=== PATIENT | male | born 1960 | race Caucasian/White ===

== ENCOUNTER 2018-09-14 05:05 | Inpatient (IN) ==
[2018-09-13 13:07] LABS: Basophils # 0.1 10*3/uL (0.0-0.2); Basophils % 1.2 % (0.0-0.8); Eosinophils # 0.2 10*3/uL (0.0-0.87); Eosinophils % 2.7 % (0.00-10.9); Hematocrit 39.2 VOL% (42.0-52.0); Hemoglobin 13.2 GM/DL (14.0-18.0); Immature Granulocytes % 1.3 %; Immature Granulocytes Absolute 0.08 #; Lymphocytes # 1.6 10*3/uL (1.4-4.0); Lymphocytes % 26.4 % (21.2-54.2); Mean Corpuscular HGB Conc 33.7 GM/DL (32-36); Mean Corpuscular Hemoglobin 32 PG (27-34); Mean Corpuscular Volume 93.6 FL (87-102); Monocytes # 0.5 10*3/uL (0.11-0.8); Monocytes % 8.6 % (1.7-12.7); Neutrophils # 3.6 10*3/uL (1.4-7.4); Neutrophils % 59.8 % (38.7-73.9); Platelet Count 306 T/CUMM (130-400); Red Blood Count 4.19 MC/CUMM (3.8-5.5); Red Cell Distribution Width 12.2 % (9.3-17.3)
[2018-09-13 13:10] LABS: Apearance,Urine CLEAR (Clear); Bilirubin,Urine Negative (Negative); Blood, Urine Negative (Negative); Glucose,Urine (UA) Negative (Negative); Ketones,Urine Negative (Negative); Mucus,Urine Occasional /LPF (Occasional); Nitrite,Urine Negative (Negative); Protein,Urine Negative; RBC,Urine 1 /HPF (0-4); Urine Color Yellow (Yellow); Urine Specific Gravity 1.012 (1.001-1.035); Urine Urobilinogen < 2.0 EU/DL (0.2-1.0); WBC,Urine <1 /HPF (0-6)
[2018-09-13 13:17] LABS: PT Patient Result 10.7 SECS
[2018-09-13 13:28] LABS: Calcium 9.1 MG/DL (8.5-10.1); Osmolality,Calculated 274.5 MOS/KG (273-304); Potassium 4.3 MMOL/L (3.5-5.1)
[~2018-09-14 05:05] MED LIST: CEFUROXIME 1,500 MG VIAL ONE; PAPAVERINE 60 MG/2 ML VIAL ONE; SODIUM CHLORIDE 0.9% 1,000 ML IV PRN; TISSUE ADHESIVE 1 EACH APPLICATOR TOP ONE; VANCOMYCIN 1,000 MG VIAL ONE
[2018-09-14] MEDS ORDERED: DIAZEPAM 5 MG TABLET ONE (05:55)
[2018-09-14] MEDS ORDERED: FAMOTIDINE 20 MG TABLET ONE (05:55)
[2018-09-14] MEDS ORDERED: CEFUROXIME 1,500 MG VIAL ONE (05:55)
[2018-09-14] MEDS ORDERED: PHENYLEPHRINE DRIP 20 MG/250 ML PREMIX IV ONE (05:57)
[2018-09-14] MEDS ORDERED: HEPARIN/NACL 0.9% 2 UNITS/ML 500 ML IV ONE (05:57)
[2018-09-14] MEDS ORDERED: MINERAL OIL/PETROLATUM OPH OINT 3.5 GM TUBE ONE (05:57)
[2018-09-14] MEDS ORDERED: AMINOCAPROIC ACID 5,000 MG/20 ML VIAL ONE (05:58)
[2018-09-14] MEDS ORDERED: NITROGLYCERIN DRIP 50 MG/250 ML BOTTLE IV ONE (05:58)
[2018-09-14] MEDS ORDERED: DIAZEPAM 5 MG TABLET PO STA (06:23)
[2018-09-14] MEDS ORDERED: FAMOTIDINE 20 MG TABLET PO STA (06:24)
[2018-09-14] MEDS: LACTATED RINGERS 1,000 ML IV SCH (06:40)
[2018-09-14 07:47] LABS: ABG Base Excess 1.7 MMOL/L (-2.5-2.5); ABG PCO2 35.1 MM HG (35-48); ABG PH 7.463 (7.35-7.45); ABG TCO2 22.1 MMOL/L (23-27); Glucose Heart Surgery 122 MG/DL (74-106); Hematocrit Heart Surgery 37.7 PERCENT (42-52); Hemoglobin Heart Surgery 12.3 G/DL (14.0-18.0); PCO2 Patient Temp Arterial 35.1 MMHG; PH Patient Temp Arterial 7.463; Patient Temperature 37 CELCIUS; Potassium Heart/CVR 3.6 MMOL/L (3.5-5.1); Sodium Heart/CVR 141 MMOL/L (135-145)
[2018-09-14] MEDS ORDERED: SODIUM BICARBONATE 50 MEQ/50 ML VIAL IV ONE ×2 (08:21→09:52)
[2018-09-14] MEDS ORDERED: CALCIUM CHLORIDE 1,000 MG/10 ML SYRINGE IV ONE (08:22)
[2018-09-14] MEDS ORDERED: POTASSIUM CHLORIDE RIDER 100 ML IV ONE (08:22)
[2018-09-14] MEDS ORDERED: LIDOCAINE 100 MG/5 ML SYRINGE ONE (08:22)
[2018-09-14] MEDS ORDERED: EPINEPHrine 1 MG/10 ML SYRINGE ONE (08:22)
[2018-09-14] MEDS ORDERED: ALBUMIN 5% 12.5 GM/250 ML VIAL IV ONE (08:22)
[2018-09-14] MEDS ORDERED: ATROPINE 1 MG/10 ML SYRINGE ONE (08:22)
[2018-09-14 08:27] LABS: Apearance,Urine CLEAR (Clear); Bilirubin,Urine Negative (Negative); Blood, Urine Negative (Negative); Glucose,Urine (UA) Negative (Negative); Ketones,Urine Negative (Negative); Mucus,Urine Occasional /LPF (Occasional); Nitrite,Urine Negative (Negative); Protein,Urine Negative; RBC,Urine 1 /HPF (0-4); Squamous Epithelial Cell,Urine Occasional /HPF (0-10); Urine Color Yellow (Yellow); Urine Specific Gravity 1.014 (1.001-1.035); Urine Urobilinogen < 2.0 EU/DL (0.2-1.0)
[2018-09-14 09:21] LABS: Hematocrit Heart Surgery 27.4 PERCENT (42-52); Hemoglobin Heart Surgery 8.8 G/DL (14.0-18.0); PCO2 Patient Temp Venous 33.9 MM HG; PH Patient Temp Venous 7.481; PO2 Patient Temp Venous 36.3 MM HG; Potassium Heart/CVR 4.6 MMOL/L (3.5-5.1); VBG Base Excess 2.1 MEQ/L (0-4); VBG Oxygen Saturation 78.3 %; VBG PCO2 37.3 MMHG (41-51); VBG PH 7.451; VBG PO2 41.8 MMHG (17-40)
[2018-09-14 09:50] LABS: ABG Base Excess 0.7 MMOL/L (-2.5-2.5); ABG HCO3 25.1 MMOL/L (20-26); ABG PCO2 36.3 MM HG (35-48); ABG TCO2 22.5 MMOL/L (23-27); Glucose Heart Surgery 288 MG/DL (74-106); Hematocrit Heart Surgery 29.1 PERCENT (42-52); Hemoglobin Heart Surgery 9.4 G/DL (14.0-18.0); Ionized Calcium Arterial 1.28 MMOL/L (1.21-1.46); PCO2 Patient Temp Arterial 36.3 MMHG; Patient Temperature 37 CELCIUS; Potassium Heart/CVR 4.1 MMOL/L (3.5-5.1); Sodium Heart/CVR 132 MMOL/L (135-145)
[2018-09-14] MEDS ORDERED: MANNITOL 100 GM/500 ML BAG IV ONE (09:51)
[2018-09-14] MEDS ORDERED: ALBUMIN 25% 25 GM/100 ML VIAL IV ONE (09:52)
[2018-09-14] MEDS ORDERED: HEPARIN 10,000 UNIT/10 ML VIAL ONE ×2 (09:52→11:11)
[2018-09-14] MEDS ORDERED: PROTAMINE SULFATE 50 MG/5 ML VIAL IV ONE (09:52)
[2018-09-14] MEDS ORDERED: MAGNESIUM SULFATE 5 GM/10 ML VIAL IV ONE (09:52)
[2018-09-14] MEDS ORDERED: methylPREDNISolone SOD SUC 1,000 MG/8 ML VIAL ONE (09:52)
[2018-09-14] MEDS ORDERED: FUROSEMIDE 20 MG/2 ML VIAL ONE (09:52)
[2018-09-14] MEDS ORDERED: PROTAMINE SULFATE 250 MG/25 ML VIAL IV ONE (09:52)
[2018-09-14] MEDS ORDERED: DEXTROSE 5% KCL 20 MEQ 20 MEQ/1,000 ML BAG IV ONE (09:52)
[2018-09-14] MEDS ORDERED: POTASSIUM CHLORIDE RIDER 10 MEQ in PREMIX 1 EACH IV PRN (10:38)
[2018-09-14] MEDS ORDERED: SODIUM CHLORIDE 0.9% 250 ML IV PRN (10:38)
[2018-09-14] MEDS ORDERED: DEXTROSE 50% 25 GM/50 ML SYRINGE IV PRN ×2 (10:38)
[2018-09-14] MEDS ORDERED: ONDANSETRON 4 MG/2 ML VIAL IV PRN (10:38)
[2018-09-14] MEDS ORDERED: MAGNESIUM SULF RIDER 2 GM in PREMIX 1 EACH IV PRN (10:38)
[2018-09-14] MEDS: NITROPRUSSIDE 100 MG in DEXTROSE 5% 246 ML IV PRN (10:38)
[2018-09-14] MEDS ORDERED: ACETAMINOPHEN 650 MG SUPP RECTAL PRN (10:38)
[2018-09-14] MEDS: SODIUM CHLORIDE 0.45% 1,000 ML IV SCH ×3 (10:38→22:43)
[2018-09-14] MEDS ORDERED: CALCIUM CHLORIDE 1,000 MG/10 ML SYRINGE IV PRN (10:38)
[2018-09-14] MEDS ORDERED: CHLORHEXIDINE 4% SOLN 118 ML BOTTLE TOP PRN (10:38)
[2018-09-14] MEDS ORDERED: MAGNESIUM SULF RIDER 4 GM in PREMIX 1 EACH IV PRN (10:38)
[2018-09-14] MEDS ORDERED: INSULIN REGULAR 100 UNIT/ML IV PRN (10:38)
[2018-09-14] MEDS ORDERED: NITROPRUSSIDE 50 MG/2 ML VIAL ONE (10:44)
[2018-09-14] MEDS ORDERED: METOPROLOL TARTRATE 5 MG/5 ML VIAL IV ONE ×3 (10:45→20:37)
[2018-09-14 11:12] LABS: ABG Base Excess 0.4 MMOL/L (-2.5-2.5); ABG HCO3 24.8 MMOL/L (20-26); ABG Oxygen Saturation 99.6 % (95-100); ABG PCO2 38.7 MM HG (35-48); ABG PH 7.414 (7.35-7.45); ABG TCO2 22.2 MMOL/L (23-27); Glucose Heart Surgery 247 MG/DL (74-106); Hematocrit Heart Surgery 34.6 PERCENT (42-52); Hemoglobin Heart Surgery 11.2 G/DL (14.0-18.0); Potassium Heart/CVR 3.2 MMOL/L (3.5-5.1)
[2018-09-14] MEDS ORDERED: SEVOFLURANE 1 UNIT/15 MINUTE INH ONE (11:12)
[2018-09-14] MEDS ORDERED: CALCIUM CHLORIDE 1,000 MG/10 ML VIAL IV ONE (11:13)
[2018-09-14] MEDS ORDERED: MIDAZOLAM 10 MG/2 ML VIAL ONE (11:13)
[2018-09-14] MEDS ORDERED: ETOMIDATE 40 MG/20 ML VIAL IV ONE (11:14)
[2018-09-14] MEDS ORDERED: PHENYLEPHRINE 1 MG/10 ML SYRINGE IV ONE (11:14)
[2018-09-14] MEDS ORDERED: ROCURONIUM 100 MG/10 ML VIAL IV ONE (11:14)
[2018-09-14] MEDS ORDERED: ePHEDrine 50 MG/ML AMP ONE (11:14)
[2018-09-14] MEDS ORDERED: hydrALAZINE 20 MG/1 ML VIAL ONE (11:14)
[2018-09-14 11:16] LABS: Basophils % 0.5 % (0.0-0.8); Eosinophils # 0.1 10*3/uL (0.0-0.87); Eosinophils % 0.7 % (0.00-10.9); Immature Granulocytes % 0.8 %; Immature Granulocytes Absolute 0.07 #; Lymphocytes # 1.4 10*3/uL (1.4-4.0); Lymphocytes % 15.3 % (21.2-54.2); Mean Corpuscular HGB Conc 33.6 GM/DL (32-36); Mean Corpuscular Hemoglobin 32 PG (27-34); Mean Corpuscular Volume 94.8 FL (87-102); Mean Platelet Volume 9.4 FL (9.6-12.0); Monocytes # 0.2 10*3/uL (0.11-0.8); Monocytes % 2.4 % (1.7-12.7); Neutrophils # 7.1 10*3/uL (1.4-7.4); Neutrophils % 80.3 % (38.7-73.9); Red Blood Count 3.48 MC/CUMM (3.8-5.5); Red Cell Distribution Width 12.3 % (9.3-17.3); White Blood Count 8.9 T/CUMM (4-12)
[2018-09-14 11:19] LABS: Hemoglobin 11.1 GM/DL (14.0-18.0); Platelet Count 240 T/CUMM (130-400)
[2018-09-14 11:21] LABS: INR 1.1; PT Patient Result 12.4 SECS; Partial Thromboplastin Time 26.7 SECS (0-40)
[2018-09-14] MEDS: POTASSIUM CHLORIDE RIDER 20 MEQ in PREMIX 1 EACH IV PRN ×4 (11:22→17:23)
[2018-09-14 11:42] LABS: Calcium 8.8 MG/DL (8.5-10.1); Osmolality,Calculated 277.8 MOS/KG (273-304); Potassium 3.5 MMOL/L (3.5-5.1)
[2018-09-14] MEDS ORDERED: ASPIRIN 325 MG TABLET PER TUBE ONE (12:00)
[2018-09-14] MEDS: MIDAZOLAM 2 MG/2 ML VIAL IV PRN ×2 (12:02→12:34)
[2018-09-14] MEDS: INSULIN REGULAR DRIP 100 ML IV SCH (12:04)
[2018-09-14] MEDS: ALBUMIN 5% 12.5 GM in PREMIX 1 EACH IV PRN ×4 (12:13→14:34)
[2018-09-14] MEDS ORDERED: SODIUM CHLORIDE 0.9% 1,000 ML IV PRN (13:16)
[2018-09-14] MEDS: MORPHINE 4 MG/1 ML VIAL IV PRN (14:23)
[2018-09-14] MEDS: MORPHINE 10 MG/1 ML VIAL IV PRN ×4 (15:08→22:29)
[2018-09-14 15:30] LABS: ABG Base Excess -0.1 MMOL/L (-2.5-2.5); ABG HCO3 24.5 MMOL/L (20-26); ABG Oxygen Saturation 97.7 % (95-100); ABG PCO2 39.7 MM HG (35-48); ABG PH 7.408 (7.35-7.45); ABG PO2 121.6 MM HG (80-95); ABG TCO2 25.7 MMOL/L (23-27)
[2018-09-14 15:39] LABS: ABG Base Excess -0.2 MMOL/L (-2.5-2.5); ABG HCO3 24.3 MMOL/L (20-26); ABG Oxygen Saturation 98.9 % (95-100); ABG PCO2 40.6 MM HG (35-48); ABG PH 7.392 (7.35-7.45); ABG TCO2 22.3 MMOL/L (23-27); Glucose Heart Surgery 167 MG/DL (74-106); Hemoglobin Heart Surgery 10.7 G/DL (14.0-18.0); Potassium Heart/CVR 3.4 MMOL/L (3.5-5.1)
[2018-09-14] MEDS ORDERED: KETOROLAC 15 MG/1 ML VIAL IV ONE (16:18)
[2018-09-14] MEDS: CEFUROXIME INJ 1,500 MG in SYRINGE 1 EACH IV SCH (17:43)
[2018-09-14] MEDS: CHLORHEXIDINE 0.12% ORAL RINSE 60 ML BOTTLE SWISH/SPIT SCH (20:24)
[2018-09-15] MEDS: SODIUM CHLORIDE 0.45% 1,000 ML IV SCH ×2 (00:32→10:57)
[2018-09-15] MEDS: MORPHINE 10 MG/1 ML VIAL IV PRN (03:35)
[2018-09-15 04:16] LABS: Basophils % 0.2 % (0.0-0.8); Hematocrit 32.2 VOL% (42.0-52.0); Hemoglobin 10.6 GM/DL (14.0-18.0); Immature Granulocytes % 0.7 %; Immature Granulocytes Absolute 0.09 #; Lymphocytes # 0.6 10*3/uL (1.4-4.0); Lymphocytes % 4.6 % (21.2-54.2); Mean Corpuscular HGB Conc 32.9 GM/DL (32-36); Mean Corpuscular Hemoglobin 32 PG (27-34); Mean Corpuscular Volume 96.4 FL (87-102); Mean Platelet Volume 9.3 FL (9.6-12.0); Monocytes # 0.5 10*3/uL (0.11-0.8); Monocytes % 3.5 % (1.7-12.7); Neutrophils # 11.8 10*3/uL (1.4-7.4); Platelet Count 259 T/CUMM (130-400); Red Blood Count 3.34 MC/CUMM (3.8-5.5); Red Cell Distribution Width 12.8 % (9.3-17.3)
[2018-09-15 04:32] LABS: Calcium 8.4 MG/DL (8.5-10.1); Osmolality,Calculated 286.7 MOS/KG (273-304); Potassium 3.8 MMOL/L (3.5-5.1)
[2018-09-15 04:59] LABS: Band Neutrophils 2 % (0-10); Lymphocytes 5 % (20-55); Segmented Neutrophils 89 % (50-85); Total Cells Counted 100
[2018-09-15 05:00] LABS: Platelet Estimate Adequate
[2018-09-15] MEDS ORDERED: NITROPRUSSIDE 50 MG/2 ML VIAL ONE (05:10)
[2018-09-15] MEDS: NITROPRUSSIDE 100 MG in DEXTROSE 5% 246 ML IV PRN (05:13)
[2018-09-15] MEDS: POTASSIUM CHLORIDE RIDER 20 MEQ in PREMIX 1 EACH IV PRN (05:29)
[2018-09-15] MEDS: LACTATED RINGERS 1,000 ML IV SCH (06:17)
[2018-09-15] MEDS: CEFUROXIME INJ 1,500 MG in SYRINGE 1 EACH IV SCH ×2 (06:53→19:08)
[2018-09-15] MEDS ORDERED: FUROSEMIDE 40 MG/4 ML VIAL IV ONE (09:15)
[2018-09-15] MEDS: METOPROLOL TARTRATE 25 MG TABLET PO SCH ×2 (10:00→20:42)
[2018-09-15] MEDS: CLOPIDOGREL 75 MG TABLET PO SCH (10:00)
[2018-09-15] MEDS: ASPIRIN EC 325 MG TABLET PO SCH (10:55)
[2018-09-15] MEDS: CHLORHEXIDINE 0.12% ORAL RINSE 60 ML BOTTLE SWISH/SPIT SCH ×2 (10:56→20:42)
[2018-09-15] MEDS: PANTOPRAZOLE 40 MG VIAL IV SCH (10:56)
[2018-09-15] MEDS: FUROSEMIDE 40 MG TABLET PO SCH (10:56)
[2018-09-15] MEDS: INSULIN REGULAR DRIP 100 ML IV SCH (10:59)
[2018-09-15] MEDS: MORPHINE 4 MG/1 ML VIAL IV PRN (19:08)
[2018-09-15] MEDS: ATORVASTATIN 40 MG TABLET PO SCH (20:42)
[2018-09-15] MEDS: TRIAMCINOLONE ACETONIDE TOP SCH (20:43)
[2018-09-16] MEDS: MORPHINE 4 MG/1 ML VIAL IV PRN ×5 (01:45→21:11)
[2018-09-16 05:30] LABS: Basophils % 0.1 % (0.0-0.8); Hematocrit 37.1 VOL% (42.0-52.0); Hemoglobin 12.3 GM/DL (14.0-18.0); Immature Granulocytes % 0.7 %; Immature Granulocytes Absolute 0.09 #; Lymphocytes # 1.1 10*3/uL (1.4-4.0); Lymphocytes % 8.3 % (21.2-54.2); Mean Corpuscular HGB Conc 33.2 GM/DL (32-36); Mean Corpuscular Hemoglobin 32 PG (27-34); Mean Corpuscular Volume 96.1 FL (87-102); Mean Platelet Volume 9.6 FL (9.6-12.0); Monocytes # 0.8 10*3/uL (0.11-0.8); Monocytes % 5.7 % (1.7-12.7); Neutrophils # 11.3 10*3/uL (1.4-7.4); Neutrophils % 85.2 % (38.7-73.9); Platelet Count 320 T/CUMM (130-400); Red Blood Count 3.86 MC/CUMM (3.8-5.5); White Blood Count 13.2 T/CUMM (4-12)
[2018-09-16 05:58] LABS: Calcium 9.3 MG/DL (8.5-10.1); Potassium 3.7 MMOL/L (3.5-5.1)
[2018-09-16] MEDS: LACTATED RINGERS 1,000 ML IV SCH (06:08)
[2018-09-16] MEDS: ASPIRIN EC 325 MG TABLET PO SCH (09:55)
[2018-09-16] MEDS: CLOPIDOGREL 75 MG TABLET PO SCH (09:57)
[2018-09-16] MEDS: PANTOPRAZOLE 40 MG VIAL IV SCH (09:57)
[2018-09-16] MEDS: METOPROLOL TARTRATE 25 MG TABLET PO SCH ×2 (09:57→21:05)
[2018-09-16] MEDS: FUROSEMIDE 40 MG TABLET PO SCH (09:57)
[2018-09-16] MEDS: CHLORHEXIDINE 0.12% ORAL RINSE 60 ML BOTTLE SWISH/SPIT SCH ×2 (09:59→21:06)
[2018-09-16] MEDS: DIMETHICONE TP SCH (09:59)
[2018-09-16] MEDS: TRIAMCINOLONE ACETONIDE TOP SCH ×2 (10:00→23:50)
[2018-09-16] MEDS ORDERED: hydrOXYzine HCL 10 MG TABLET PO PRN (10:41)
[2018-09-16] MEDS: ATORVASTATIN 40 MG TABLET PO SCH (21:05)
[2018-09-17 04:38] LABS: Basophils % 0.3 % (0.0-0.8); Eosinophils % 0.3 % (0.00-10.9); Hematocrit 35.5 VOL% (42.0-52.0); Hemoglobin 11.7 GM/DL (14.0-18.0); Immature Granulocytes % 0.7 %; Immature Granulocytes Absolute 0.05 #; Lymphocytes # 1.3 10*3/uL (1.4-4.0); Lymphocytes % 18.3 % (21.2-54.2); Mean Corpuscular Hemoglobin 32 PG (27-34); Mean Platelet Volume 9.8 FL (9.6-12.0); Monocytes # 0.7 10*3/uL (0.11-0.8); Monocytes % 9.3 % (1.7-12.7); Neutrophils # 5.1 10*3/uL (1.4-7.4); Neutrophils % 71.1 % (38.7-73.9); Platelet Count 241 T/CUMM (130-400); Red Blood Count 3.66 MC/CUMM (3.8-5.5); White Blood Count 7.2 T/CUMM (4-12)
[2018-09-17 04:50] LABS: Calcium 8.7 MG/DL (8.5-10.1); Osmolality,Calculated 282.3 MOS/KG (273-304); Potassium 3.3 MMOL/L (3.5-5.1)
[2018-09-17] MEDS: LACTATED RINGERS 1,000 ML IV SCH (06:05)
[2018-09-17] MEDS: FUROSEMIDE 40 MG TABLET PO SCH (08:14)
[2018-09-17] MEDS: ASPIRIN EC 325 MG TABLET PO SCH (08:14)
[2018-09-17] MEDS: METOPROLOL TARTRATE 25 MG TABLET PO SCH ×2 (08:14→20:30)
[2018-09-17] MEDS: PANTOPRAZOLE 40 MG VIAL IV SCH (08:15)
[2018-09-17] MEDS: CHLORHEXIDINE 0.12% ORAL RINSE 60 ML BOTTLE SWISH/SPIT SCH ×2 (08:16→20:29)
[2018-09-17] MEDS: DIMETHICONE TP SCH (08:19)
[2018-09-17] MEDS: TRIAMCINOLONE ACETONIDE TOP SCH ×2 (08:19→21:35)
[2018-09-17] MEDS: POTASSIUM CHLORIDE 20 MEQ TABLET PO PRN ×3 (08:43→13:10)
[2018-09-17] MEDS: CLOPIDOGREL 75 MG TABLET PO SCH (08:43)
[2018-09-17] MEDS: ATORVASTATIN 40 MG TABLET PO SCH (20:30)
[2018-09-17] MEDS: APIXABAN 5 MG TABLET PO SCH (20:30)
[2018-09-18 05:02] LABS: Basophils % 0.4 % (0.0-0.8); Eosinophils # 0.1 10*3/uL (0.0-0.87); Eosinophils % 1.3 % (0.00-10.9); Hematocrit 35.2 VOL% (42.0-52.0); Hemoglobin 11.8 GM/DL (14.0-18.0); Immature Granulocytes % 1.3 %; Immature Granulocytes Absolute 0.09 #; Lymphocytes # 1.5 10*3/uL (1.4-4.0); Lymphocytes % 21.3 % (21.2-54.2); Mean Corpuscular HGB Conc 33.5 GM/DL (32-36); Mean Corpuscular Hemoglobin 32 PG (27-34); Mean Corpuscular Volume 95.4 FL (87-102); Mean Platelet Volume 9.9 FL (9.6-12.0); Monocytes # 0.7 10*3/uL (0.11-0.8); Monocytes % 9.7 % (1.7-12.7); Neutrophils # 4.6 10*3/uL (1.4-7.4); Platelet Count 251 T/CUMM (130-400); Red Blood Count 3.69 MC/CUMM (3.8-5.5); Red Cell Distribution Width 12.5 % (9.3-17.3)
[2018-09-18 05:23] LABS: Calcium 8.8 MG/DL (8.5-10.1); Osmolality,Calculated 284.1 MOS/KG (273-304); Potassium 3.4 MMOL/L (3.5-5.1)
[2018-09-18] MEDS: LACTATED RINGERS 1,000 ML IV SCH (06:21)
[2018-09-18] MEDS: POTASSIUM CHLORIDE 20 MEQ TABLET PO PRN ×2 (06:27→09:19)
[2018-09-18 07:36] VITALS: BP 129/84
[2018-09-18] MEDS ORDERED: CLOPIDOGREL 75 MG TABLET PO SCH (09:00)
[2018-09-18] MEDS: PANTOPRAZOLE 40 MG VIAL IV SCH (09:17)
[2018-09-18] MEDS: METOPROLOL TARTRATE 25 MG TABLET PO SCH (09:19)
[2018-09-18] MEDS: APIXABAN 5 MG TABLET PO SCH (09:19)
[2018-09-18] MEDS: FUROSEMIDE 40 MG TABLET PO SCH (09:19)
[2018-09-18] MEDS: TRIAMCINOLONE ACETONIDE TOP SCH (09:20)
[2018-09-18] MEDS: DIMETHICONE TP SCH (09:20)
[2018-09-18] MEDS: CHLORHEXIDINE 0.12% ORAL RINSE 60 ML BOTTLE SWISH/SPIT SCH (09:20)
[2018-09-18] MEDS ORDERED: POTASSIUM CHLORIDE 20 MEQ TABLET PO ONE (09:21)
[2018-09-18] MEDS: CLOPIDOGREL 75 MG TABLET PO SCH (09:28)
[2018-09-18] MEDS ORDERED: ASPIRIN 325 MG TABLET PO SCH (09:30)
== END 2018-09-18 10:36 | disposition home health service (06) | DRG 236 ==
LOC: N.SDSINP 05:05 → N.CVR 07:57 → N.TELES 09-15 10:43
PROVIDERS: ADMIT Thoracic Surgery (Cardiothoracic Vascular Surgery); ATTEND Thoracic Surgery (Cardiothoracic Vascular Surgery)